=== PATIENT | male | born 1955 | race Caucasian/White ===

== ENCOUNTER → 2017-02-26 | Outpatient (CLI) | payer MEDICARE, OTHER ==
[~2017-02-26] MED LIST: ACCUPRIL; ADVIL200 M1 PO; DARVOCET-N 1001 TA1 PO; FLEXERIL PO; HYDROCODON-ACE1 EAC7 PO; HYDROCODON-ACE1 EAC9 PO; HYDROCODONE-APA1 T59 PO; IBUPROFEN PO; IBUPROFEN800 MG PO; KLONOPIN PO; LORCET HD 10-31 EACH PO; LORTAB 10/500 T1 TAB PO; LORTAB 5/500 TA1 TA1 PO; MEDROL PO; MOBIC15 MG PO; MULTIPLE VITAMI1 T11 PO; NAPROSYN500 MG PO; NO MEDICATIONS; NORCO 5/325 TAB1 TAB PO; NORCO 7.5-3251 EACH PO; PERCOCET 7.5-31 EACH PO; PHENERGAN25 MG PO; TYLOX 5/500 CAP1 CAP PO; ULTRAM PO; VICODIN 5/500 T1 TAB; VICODIN 5/500 T1 TAB PO
[2017-02-26 11:44] LABS: HEMATOCRIT 43.4 % (38.0-50.0); HEMOGLOBIN 14.8 gm/dL (13.0-16.0); MEAN CELL VOLUME 93.4 FL (83-96); MEAN CORPUSCULAR HEMOGLOBIN 31.8 PG (28-34); MEAN PLATELET VOLUME 10.8 FL (6.5-11.5); RED BLOOD COUNT 4.65 X10e (3.90-5.60); RED CELL DISTRIBUTION WIDTH 14.8 % (11.0-15.5); WHITE BLOOD COUNT 4.6 X10e3 (4.0-10.5)
[2017-02-26 11:49] LABS: URINE APPEARANCE CLEAR; URINE BILIRUBIN NEG (NEG); URINE BLOOD NEG (NEG); URINE COLOR YELLOW; URINE GLUCOSE NEG (NEG); URINE KETONE NEG (NEG); URINE LEUKOCYTE ESTERASE NEG (NEG); URINE NITRATE NEG (NEG); URINE PROTEIN TRACE (NEG); URINE SPECIFIC GRAVITY 1.009 (1.003-1.035)
[2017-02-26 12:03] LABS: CULTURE INDICATED? NO
[2017-02-26 12:14] LABS: ALBUMIN SERUM 3.6 g/dL (3.5-5.0); BILIRUBIN,TOTAL 1.3 mg/dL (0.2-2.0); BUN/CREATININE RATIO 12.22; CALCIUM SERUM 8.6 mg/dL (8.4-10.2); CREATININE SERUM 0.9 mg/dL (0.6-1.4); GLOM FILT RATE Estimated 91.2 mL/min (>60); POTASSIUM 3.7 mmol/L (3.5-5.1); PROTEIN TOTAL SERUM 7.8 g/dL (6.0-8.3)
== END | disposition home or self-care (01) ==
LOC: CAMB 10:53
PROVIDERS: Orthopaedic Surgery
DX: Z01.812 Encounter for preprocedural laboratory examination (principal); M17.11 Unilateral primary osteoarthritis, right knee; R12 Heartburn; Z98.890 Other specified postprocedural states; Z79.82 Long term (current) use of aspirin
CPT/HCPCS: 36415; 80053; 81003; 85027; 85610; 86850; 86900; 86901; 87070

== ENCOUNTER → 2017-03-03 | Outpatient (CLI) | payer MEDICARE, OTHER ==
--- NOTE | ~2017-03-03 | CR63 ---
[facility] A Service of [facility] & [facility] RADIOLOGY TEXT RESULTS PATIENT: RIP MARQUEZ LOCATION: [facility] : 55 UNIT #: [id number] AGE: [address]: ROSA MARIA BOKOER SEX: M ORDER DR: [id number] [facility] [address] [place], [place] [address] [id number] O MR#: [id number] Acc #: [id number] NAME: RIP MARQUEZ : 1955 SEX: M STUDY DATE/TIME: 03/03/2017 15:31 UNIT: [facility] ROOM: STUDY DESCRIPTION: CR Chest 2 View Attending Physician: Bret Johnson Referring Physician: Bret Johnson Ordering Physician: Bret Johnson Primary Care Physician: Kylee Delong M.D. MEDICAL IMAGING REPORT This report is preliminary unless electronic signature is present EXAM PA and lateral chest 03/03/2017 COMPARISON 11/13/2016. HISTORY Preop right knee replacement. Chronic shortness of breath with activity. FINDINGS PA and lateral views are obtained. The cardiac size in the patient is stable. There are extensive postsurgical changes at the left base. There is a metallic density projected over the right apex unchanged from prior study. CONCLUSION Stable chest with chronic postsurgical changes at the left base. No acute process identified. Dictated by... Channing Henry M.D. THIS IS AN ELECTRONICALLY VERIFIED REPORT Channing Henry M.D. at 03/06/2017 7:10 AM ARIE/guanako TD: 03/04/2017 08:09 JOB #: [id number] MEDICAL IMAGING REPORT Page 1 of 1 COPY
--- NOTE | ~2017-03-03 | EKG ---
PATIENT: RIP MARQUEZ UNIT #: [id number] Ventricular Rate: 82 BPM Atrial Rate: 82 BPM P-R Interval: 146 ms QRS Duration: 94 ms Q-T Interval: 384 ms QTC Calculation(Bezet): 448 ms P [place]: 76 degrees Calculated R [place]: 4 degrees Calculated T [place]: 50 degrees Diagnosis Line: Normal sinus rhythm Diagnosis Line: Nonspecific T wave abnormality Diagnosis Line: Abnormal ECG Diagnosis Line: When compared with ECG of 13-NOV-2016 12:53, Diagnosis Line: No significant change was found Diagnosis Line: Confirmed by BREE GILBERT MD ([id number]) on Diagnosis Line: 03/03/2017 10:31:23 PM INTERPRETING MD: CARMEN
== END | disposition home or self-care (01) ==
LOC: CRAD 15:15
DX: Z01.818 Encounter for other preprocedural examination (principal); R94.31 Abnormal electrocardiogram [ECG] [EKG]; Z98.890 Other specified postprocedural states
CPT/HCPCS: 71020; 93005

== ENCOUNTER 2017-03-09 06:03 | Inpatient (IN) | payer MEDICARE, OTHER ==
--- NOTE | ~2017-03-09 | OR ---
Unit #: [id number] #: [id number] Patient: RIP MARQUEZ [id number] [facility]. [place], [place] [address] [id number] I MR#: [id number] NAME: RIP MARQUEZ ROOM: 453 Date of Procedure: 03/09/2017 Admission Date: 03/09/2017 Surgeon: Evin Forte M.D. : 1955 Attending Physician: Evin Forte M.D. Primary Care Physician: Kylee Delong M.D. OPERATIVE REPORT PREOPERATIVE DIAGNOSIS Primary localized osteoarthritis of the right knee. POSTOPERATIVE DIAGNOSIS Primary localized osteoarthritis of the right knee. PROCEDURE PERFORMED Right total knee. ASSISTANTS Jae and Ania. ANESTHESIA Adductor canal block plus general. ESTIMATED BLOOD LOSS About 100 mL. INDICATIONS FOR PROCEDURE This is a 61-year-old with severe pain in the right knee. He has tried injections and anti-inflammatories with no relief of his discomfort. X-rays show he has osteoarthritis. DESCRIPTION OF PROCEDURE The patient was brought to the holding room, given 2 g of Kefzol. This will be continued postop, but discontinued within 23 hours the start time of surgery. He was then given an adductor canal block, brought back to the operating room, given a general anesthetic. Tourniquet was placed around the right leg after general anesthetic was administered. The leg was prepped and draped. Tourniquet was inflated to 250. A straight anterior skin incision was made. The subcutaneous dissected away and a medial arthrotomy was performed. Patella was slid to the side. Osteophytes were removed from the femur. The intramedullary guide was used and a 6-degree valgus cut was made on the distal femur. The femur was sized using the PFC Sigma sizing guide and was found to be a size 5 femur. The anterior-posterior cutting block was applied. Rotation was checked in the knee. Anterior and posterior cuts were made along with the chamfer cuts. Proximal tibial cut was made using a 0-degree cutting block. It was sized and found to be a size 4. We then placed the trials. The drill holes were made for lugs on the femoral component. With an [address], the knee came to full extension and good stability in extension and flexion. Rotation of tibia was marked. The external Unit #: [id number] #: [id number] Patient: RIP MARQUEZ alignment guide showed appropriate alignment of the limb. The patella was grasped with 2 towel clips. It measured 25 mm thick, was cut smooth at 14 and a 41 patella was the appropriate size. We then made the two drill holes. We removed all the trials. The drill and punch were used for the tibial tray. The knee was irrigated and dried while the cement was mixed and then all 3 components were cemented simultaneously. Any excess cement was removed and after the cement had hardened, the rest of ropivacaine mixture was injected. The tourniquet was released, and the wound was closed using 0 Ethibond in the arthrotomy, 0 and 2-0 Vicryl in the subcutaneous, and chinyere in the skin. public health training assistant, Jos Rowe was present throughout the entire case. Dictated by... John Olivera/chon TD: 03/09/2017 21:58 JOB #: [id number] OPERATIVE REPORT Page 1 of 1 X Evin Forte MD X PROCEDURE OPERATIVE NOTE
--- NOTE | ~2017-03-09 | DS ---
Unit #: [id number] #: [id number] Patient: RIP MARQUEZ [id number] [facility]. [place], [place] [address] [id number] I MR#: [id number] NAME: RIP MARQUEZ ROOM: 453 Age: 62 Sex: M Admission Date: 03/09/2017 : 1955 Discharge Date: 03/10/2017 Attending Physician: Evin Forte M.D. Primary Care Physician: Kylee Delong M.D. DISCHARGE SUMMARY ADMITTING DIAGNOSIS Primary localized osteoarthritis of the right knee. DISCHARGE DIAGNOSIS Primary localized osteoarthritis of the right knee. PROCEDURES IN HOSPITAL Right total knee. HOSPITAL COURSE The patient is admitted on 03/09/2017 and taken to the operating room where he underwent a right total knee replacement postoperatively. He has done. He is afebrile. He has been up walking. His pain is controlled with oral pain medicine. His hemoglobin today is 11.8. He is on aspirin 325 b.i.d. for DVT prophylaxis and he will have home physical therapy. He will follow up in the office in six weeks. He is weight bearing as tolerated. Will arrange for home therapy. CONDITION ON DISCHARGE Improved. MEDICATIONS Routine home medicines plus his [place] 10/325 and aspirin 325 b.i.d. Dictated by... Evin Forte M.D. LINDY/sudeep TD: 03/10/2017 13:15 JOB #: [id number] DISCHARGE SUMMARY Page 1 of 1 X Evin Forte MD X DISCHARGE SUMMARY
[~2017-03-09 06:03] MED LIST changes: -LORCET HD 10-31 EACH PO
[2017-03-09 06:59] LABS: INR 1.1; PROTHROMBIN TIME (PATIENT) 11.4 SECONDS (9.6-11.5)
[2017-03-10 03:19] LABS: HEMATOCRIT 34.5 % (38.0-50.0); HEMOGLOBIN 11.8 gm/dL (13.0-16.0); MEAN CELL VOLUME 92.1 FL (83-96); MEAN CORPUSCULAR HEMOGLOBIN 31.4 PG (28-34); MEAN CORPUSCULAR HGB CONC 34.1 g/dL (30-36); MEAN PLATELET VOLUME 10.9 FL (6.5-11.5); RED BLOOD COUNT 3.75 X10e (3.90-5.60); RED CELL DISTRIBUTION WIDTH 14.4 % (11.0-15.5)
[2017-03-10] MEDS ORDERED: LORCET HD 10-31 EACH PO (12:13)
== END 2017-03-10 12:43 | disposition home health service (06) | DRG 470 ==
LOC: CSUR 06:03 → CPACUOF 07:27 → C4B 11:12
PROVIDERS: Orthopaedic Surgery
PROC: 0SRC0J9 Replacement of Right Knee Joint with Synthetic Substitute, Cemented, Open Approach (ICD-10-PCS; principal; 2017-03-09 08:30)
DX: M17.11 Unilateral primary osteoarthritis, right knee (principal); I10 Essential (primary) hypertension; D72.829 Elevated white blood cell count, unspecified; Z86.19 Personal history of other infectious and parasitic diseases; Z85.038 Personal history of other malignant neoplasm of large intestine; J44.9 Chronic obstructive pulmonary disease, unspecified; F17.210 Nicotine dependence, cigarettes, uncomplicated
CPT/HCPCS: 85027; 85610; 94760; 97110; 97116; 97161; 97530; C1776; G8978-GP; G8979-GP; J0131; J0171; J0690; J0735; J1100; J1170; J1885; J2250; J2405; J2795; J3010

== ENCOUNTER 2017-04-09 22:55 | Emergency (ER) | payer MEDICARE, OTHER ==
--- NOTE | ~2017-04-09 | CT71 ---
[facility] A Service of [facility] RADIOLOGY TEXT RESULTS PATIENT: RIP MARQUEZ LOCATION: [facility] : 55 UNIT #: [id number] AGE: [address]: Alfredito Patel DO SEX: M ORDER DR: [id number] [facility]. [place], [place] [address] [id number] E MR#: [id number] Acc #: [id number] NAME: RIP MARQUEZ : 1955 SEX: M STUDY DATE/TIME: 04/10/2017 0:07 UNIT: [facility] ROOM: STUDY DESCRIPTION: CT Head Wo Contrast Attending Physician: Alfredito Patel D.O. Ordering Physician: Alfredito Patel D.O. Primary Care Physician: Kylee Delong M.D. MEDICAL IMAGING REPORT This report is preliminary unless electronic signature is present EXAM CT head without contrast. INDICATIONS Confusion and weakness for the past [address] of the head. This CT exam was performed with one or more of the following radiation dose reduction techniques: automatic exposure control, adjustment of mA and/or kV according to patient size, and iterative reconstruction. COMPARISON 04/02/15 FINDINGS No acute hemorrhage, abnormal mass effect, extraaxial collection or hydrocephalus. No calvarial fracture. IMPRESSION No acute findings. Dictated by... Abraham Toney M.D. THIS IS AN ELECTRONICALLY VERIFIED REPORT Abraham Toney M.D. at 04/13/2017 7:19 AM EED/pc TD: 04/10/2017 08:49 JOB #: [id number] MEDICAL IMAGING REPORT [facility] A Service [facility] RADIOLOGY TEXT RESULTS PATIENT: RIP MARQUEZ LOCATION: [facility] : 55 UNIT #: [id number] AGE: [address]: Alfredito Patel DO SEX: M ORDER DR: Page 1 of 1 COPY
[~2017-04-09 22:55] MED LIST changes: +LORCET HD 10-31 EACH PO
[2017-04-09 23:37] LABS: POC - CKMB <1.0 ng/mL (0.0-7.9); POC - TROPONIN <0.05 ng/mL (<=0.05)
[2017-04-09 23:57] LABS: BASOPHIL# 0.1 X10e3 (0-0.3); BASOPHIL% 0.8 % (0-2.5); EOSINOPHIL# 0.3 X10e3 (0-0.7); EOSINOPHIL% 4.4 % (0.0-7.0); HEMATOCRIT 38.4 % (38.0-50.0); LYMPHOCYTE# 1.5 X10e3 (1.0-3.5); LYMPHOCYTE% 20.6 % (17.0-45.0); MEAN CELL VOLUME 93.6 FL (83-96); MEAN CORPUSCULAR HEMOGLOBIN 31.7 PG (28-34); MEAN CORPUSCULAR HGB CONC 33.9 g/dL (30-36); MEAN PLATELET VOLUME 10.8 FL (6.5-11.5); MONOCYTE# 1.1 X10e3 (0-1.0); MONOCYTE% 15.5 % (3.0-12.0); NEUTROPHIL# 4.2 X10e3 (1.5-7.1); NEUTROPHIL% 58.7 % (40-75); PLATELET COUNT 105 X10e3 (140-420); RED BLOOD COUNT 4.11 X10e (3.90-5.60); RED CELL DISTRIBUTION WIDTH 14.8 % (11.0-15.5); WHITE BLOOD COUNT 7.2 X10e3 (4.0-10.5)
[2017-04-09 23:59] LABS: DIFF IND NO
[2017-04-10 00:14] LABS: SALICYLATE <4.0 mg/dL
[2017-04-10 00:15] LABS: ACETAMINOPHEN <10 ug/mL; ALCOHOL BLOOD <5 mg/dL ([0,])
[2017-04-10 00:17] LABS: ALBUMIN SERUM 3.5 g/dL (3.5-5.0); BILIRUBIN, DIRECT 0.2 mg/dL (0.0-0.2); BILIRUBIN,INDIRECT 0.8 mg/dL (0.0-0.9); BUN/CREATININE RATIO 16.66; CALCIUM SERUM 9.2 mg/dL (8.4-10.2); CREATININE SERUM 1.2 mg/dL (0.6-1.4); GLOM FILT RATE Estimated 64.4 mL/min (>60); POTASSIUM 3.2 mmol/L (3.5-5.1); PROTEIN TOTAL SERUM 7.9 g/dL (6.0-8.3)
[2017-04-10 00:50] LABS: INR 1.1; PARTIAL THROMBOPLASTIN TIME 29.4 SECONDS (23.5-31.3); PROTHROMBIN TIME (PATIENT) 11.3 SECONDS (9.6-11.5)
== END 2017-04-10 01:26 | disposition left against medical advice (07) ==
LOC: CED 22:55
PROVIDERS: Emergency Medicine
DX: R53.83 Other fatigue (principal); F17.200 Nicotine dependence, unspecified, uncomplicated; Z88.5 Allergy status to narcotic agent; Z91.040 Latex allergy status; Z79.899 Other long term (current) drug therapy
CPT/HCPCS: 36415; 70450; 80048; 80076; 82140; 82553; 83605; 84484; 85025; 85610; 85730; 99284; G0480

== ENCOUNTER 2017-04-16 13:32 | Emergency (ER) | payer MEDICARE, OTHER ==
--- NOTE | ~2017-04-16 | CR112 ---
[facility] A Service of [facility] & [facility] RADIOLOGY TEXT RESULTS PATIENT: RIP MARQUEZ LOCATION: [facility] : 55 UNIT #: [id number] AGE: [address]: Alfredito Patel DO SEX: M ORDER DR: [id number] [facility] [address] [place], [place] [address] [id number] E MR#: [id number] Acc #: [id number] NAME: RIP MARQUEZ : 1955 SEX: M STUDY DATE/TIME: 04/16/2017 15:29 UNIT: [facility] ROOM: STUDY DESCRIPTION: CR Finger 2 View 4Th Lt Attending Physician: Alfredito Patel D.O. Ordering Physician: Alfredito Patel D.O. Primary Care Physician: Kylee Delong M.D. MEDICAL IMAGING REPORT This report is preliminary unless electronic signature is present EXAM Left fourth finger series dated 04/16/2017. COMPARISON None. HISTORY Pain and swelling with bruising for 3 days following trauma of the left fourth finger. FINDINGS 3 views of the left fourth finger were obtained. There is an oblique nondisplaced fracture involving the anterior and inferior aspect of the base of the second phalanx. Fracture line extends to the articulating surface of the middle phalanx with the proximal phalanx. No associated dislocation is seen. Mild adjacent soft tissue swelling cannot be excluded. No radiopaque foreign body. Dictated by... Екатерина Loomis M.D. THIS IS AN ELECTRONICALLY VERIFIED REPORT Екатерина Loomis M.D. at 04/17/2017 3:13 PM CPR/pcl TD: 04/16/2017 18:17 JOB #: [id number] MEDICAL IMAGING REPORT Page 1 of 1 COPY
== END 2017-04-16 16:54 | disposition home or self-care (01) ==
LOC: CED 13:32
DX: S62.645A Nondisplaced fracture of proximal phalanx of left ring finger, initial encounter for closed fracture (principal); F17.200 Nicotine dependence, unspecified, uncomplicated; Z98.890 Other specified postprocedural states; Z91.040 Latex allergy status; X58.XXXA Exposure to other specified factors, initial encounter; Y92.9 Unspecified place or not applicable
CPT/HCPCS: 29130; 29131; 73140; 99283